=== PATIENT | female | born 2000 | race Caucasian/White ===

== ENCOUNTER → 2018-06-07 | Outpatient (CLI) | payer OTHER ==
--- NOTE | 2018-06-07 11:31 | CT ---
EXAMINATION TYPE: CT abdomen pelvis wo con DATE OF EXAM: 06/07/2018 COMPARISON: None HISTORY: Right flank pain, hematuria. History of tuberous sclerosis. CT DLP: 392 mGycm Automated exposure control for dose reduction was used. TECHNIQUE: Helical acquisition of images was performed from the lung bases through the pelvis. FINDINGS: LUNG BASES: No significant abnormality is appreciated. LIVER/GB: No significant abnormality is appreciated. No cholelithiasis. PANCREAS: No significant abnormality is seen. SPLEEN: No significant abnormality is seen. No splenomegaly. ADRENALS: No significant abnormality is seen. 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 No renal calculi are seen. No hydronephrosis. FREE AIR: No free air is visualized ADENOPATHY: No greater than 1 cm short axis lymph nodes are seen in the abdomen or pelvis given the limitation of lack of intravenous contrast. REPRODUCTIVE ORGANS: There are multiple tubular structures within the low pelvis that appear to be co ntiguous with bowel however few of these are not clearly contiguous with small bowel such as on serie s 3 image 100 and are adjacent to the adnexa. Given this patient's right flank pain hydrosalpinx is p ossible. Pelvic ultrasound or CT pelvis with oral contrast could further assess this finding. Follicu lar and/or cystic changes are seen of both ovaries. No pelvic inflammatory change. URINARY BLADDER: No urinary bladder calculi are appreciated OSSEOUS STRUCTURES: Nonspecific sclerotic foci are seen within the sacrum and right iliac bone, poss ibly bone islands. Osseous structures are grossly intact. BOWEL: No significant abnormality is seen. The appendix is air-filled and within normal limits. IMPRESSION: 1. BILATERAL FOLLICULAR AND/OR CYSTIC CHANGES OF THE OVARIES, RIGHT GREATER THAN LEFT MEASURING UP TO 2.3 CM ON THE RIGHT THAT COULD BE FURTHER ASSESSED WITH ULTRASOUND. ADDITIONALLY LOOPS OF ADJACENT L IKELY SMALL BOWEL ARE SEEN HOWEVER PELVIC ULTRASOUND COULD EXCLUDE THE POSSIBILITY OF HYDROSALPINX NO ORAL CONTRAST WAS ADMINISTERED. 2. FINDINGS SUGGESTING MEDULLARY SPONGE KIDNEY. NO HYDRONEPHROSIS, HYDROURETER, OR NEPHROLITHIASIS. N O URINARY BLADDER CALCULI.
--- NOTE | 2018-06-07 14:01 | US ---
EXAMINATION TYPE: US pelvic complete DATE OF EXAM: 06/07/2018 COMPARISON: CT today CLINICAL HISTORY: . Rt side pain TECHNIQUE: Transabdominal (TA). Transabdominal sonographic images of the pelvis were acquired. TV deferred pt virgin pt on medication stops period Date of LMP: 02/2018 EXAM MEASUREMENTS: Uterus: 4.7 x 2.6 x 2.9 cm Endometrial Stripe: 0.2 cm Right Ovary: 1.8 x 1.5 x 2.4 cm Left Ovary: 1.5 x 1.1 x 1.1 cm 1. Uterus: Anteverted wnl 2. Endometrium: wnl 3. Right Ovary: wnl 4. Left Ovary: wnl 5. Bilateral Adnexa: Obscured by overlying bowel gas 6. Posterior cul-de-sac: wnl IMPRESSION: 1. No acute abnormality by ultrasound.
== END | disposition home or self-care (01) ==
LOC: RADCTMAIN 09:45 → EEVIPCON 09:45
PROVIDERS: ATTEND Family Medicine
DX: N83.201 Unspecified ovarian cyst, right side (principal); R31.9 Hematuria, unspecified
CPT/HCPCS: 74176; 76856

== ENCOUNTER → 2018-06-08 | Outpatient (CLI) | payer OTHER ==
[2018-06-08 16:29] LABS: Basophils % (A) 0 %; Eosinophils # (A) 0.1 k/uL (0-0.7); Eosinophils % (A) 1 %; HCT 33.7 % (34.0-46.0); HGB 10.5 gm/dL (11.4-16.0); Lymphocytes # (A) 2.1 k/uL (1.0-4.8); Lymphocytes % (A) 22 %; MCH 26.7 pg (25.0-35.0); MCHC 31.1 g/dL (31.0-37.0); MCV 85.8 fL (80.0-100.0); Mean Platelet Volume 7.2; Monocytes % (A) 10 %; Neutrophils # (A) 6.2 k/uL (1.3-7.7); Neutrophils % (A) 65 %; Platelet Count 287 k/uL (150-450); RBC 3.93 m/uL (3.80-5.40); RDW 14.1 % (11.5-15.5); WBC 9.5 k/uL (4.0-11.0)
[2018-06-08 16:49] LABS: Appearance,Urine Cloudy (Clear); Bacteria,Urine Rare /hpf; Bilirubin,Urine Negative (Negative); Blood,Urine Trace (Negative); Color,Urine Yellow; Glucose,Urine (UA) Negative (Negative); Ketones,Urine Negative (Negative); Leukocyte Esterase,Urine Negative (Negative); Mucus,Urine Rare /hpf; Nitrite,Urine Negative (Negative); PH, Urine 6.5 (5.0-8.0); Protein,Urine Negative (Negative); RBC,Urine 4 /hpf (0-5); Specific Gravity,Urine 1.017 (1.001-1.035); Squamous Epithelial Cell,Urine 1 /hpf (0-4); WBC,Urine 3 /hpf (0-5)
[2018-06-08 22:42] LABS: Albumin 4.1 g/dL (3.80-4.90); Albumin/Globulin Ratio 1.17 (1.20-2.10); Calcium 9.4 mg/dL (8.7-10.3); Globulin 3.5 g/dL (1.6-3.3); LDL Cholesterol,Calculated 125.6 mg/dL (0.0-131.0); Potassium 4.3 mmol/L (3.5-5.5); Total Bilirubin 0.4 mg/dL (0.2-1.2); Total Protein 7.6 g/dL (6.2-8.2); VLDL Calculation 18.4 mg/dL (5.00-40.00)
[2018-06-08 22:44] LABS: Valproic Acid (Depakene) 105.9 ug/mL (50.0-100.0)
== END | disposition home or self-care (01) ==
LOC: LABWHC1 15:08
PROVIDERS: ATTEND Family Medicine
DX: R50.9 Fever, unspecified (principal); R53.83 Other fatigue
CPT/HCPCS: 36415; 80053; 80061; 80164; 81001; 82306; 85025; 86308